=== PATIENT | male | born 1945 | race Caucasian/White ===

== ENCOUNTER 2022-11-12 06:44 | Day surgery (SDC) | payer MEDICARE ==
[2022-11-11 11:23] LABS: HEMOGLOBIN 17.7 g/dl (13.5-18.0); MEAN CELL VOLUME 87 fl (80.0-100.0); MEAN CORPUSCULAR HEMOGLOBIN 29 pg (27-31); MEAN CORPUSCULAR HGB CONC 34 g/dl (33.0-37.0); MEAN PLATELET VOLUME 9.1 fl (7.4-10.4); PLATELET COUNT 161 K/mm3 (130-400); RED BLOOD COUNT 6.06 M/mm3 (4.20-5.60); REDCELL DISTRIBUTION WIDTH-CV 14.5 % (11.5-14.5)
[2022-11-11 11:27] LABS: HEMATOCRIT 52.5 % (42.0-52.0)
[2022-11-11 11:40] LABS: CALCIUM 9.9 mg/dL (8.4-10.2); CREATININE, serum 1.16 mg/dL (0.72-1.25); POTASSIUM 4.3 mmol/L (3.5-4.5)
[2022-11-12] VITALS (23 sets, daily range): BP systolic 106–140; BP diastolic 32–94; PULSE 55–98; TEMP 97.9–98.9
[~2022-11-12] VITALS: Ht 185.4 cm; Wt 101.8 kg
[~2022-11-12 06:44] MED LIST: ASPIRIN 81M81 MG/TA2 PO; COMPLETE MULTI1 TAB PO; CRANBERRY500 M3 PO; FLOMAX 0.40.4 MG/CAP PO; FLOVENT DI50 MCG/Act NAS; NATURAL ODORLE400 MG PO; PERCOCET 325 MG1 TA2 PO; PRINIVIL20 MG PO; VISION FORMULA1 EAC1 PO
--- NOTE | 2022-11-12 08:25 | NUR ---
1 MG VERSED AND 50 MCG FENTANYL GIVEN AT 0818. SATS DROPPED TO 88% AND O2 WAS PLACED @ 2L/NC. PT RECOVERED TO 95%
--- NOTE | 2022-11-12 08:36 | NUR ---
DR CASTILLO REQUESTED ANOTHER 25 MCG FENTANYL TO BE GIVEN.
--- NOTE | 2022-11-12 09:15 | NUR ---
PT WAS TAKEN TO [facility] ON CART. PT IS ON HIS BACK AND ALL WIRES TAPED SECURLY TO THE BACK. VSS. REPORT TO [facility] NURSE. PT COMFORTABLE AT PRESENT
--- NOTE | 2022-11-12 11:26 | NUR ---
0916: PATIENT BACK FROM RADIOLOGY AT THIS TIME. EMPTIED 125ML OF BLOOD TINGED URINE FROM URINAL. PATIENT STATED HIS PAIN IS CONTROLED AT THIS TIME. SPO2 ON RA IS 95%. PATIENT RESTING IN COT ON STOMACH. AND DAUGHTER AT BEDSIDE. CALL LIGHT IN REACH. 1000: PATIENT RESTING ON COT LAYING ON RIGHT SIDE. EMPTIED 75ML OF BLOOD TINGED URING. PATIENT STATING PAIN IS TOLERABLE AT THIS TIME. SPO2 94% ON ROOM AIR. AND DAUGHTER AT BEDSIDE. CALL LIGHT IN REACH. WILL CONTINE TO MONITOR.
[2022-11-12] MEDS ORDERED: PYRIDIUM 100MG100 MG PO (14:35)
[2022-11-12] MEDS ORDERED: NORCO 325 MG-51 TAB PO (14:35)
--- NOTE | 2022-11-12 17:46 | NUR ---
Patient resting in bed. Family at bedside. He has done well post op. He tolerated meals. Vss. Brantley to DD with blood tinged output. Left flank with gauze and tegaderm intact. Levsin & tylenol for bladder pressure & pain. Denies other needs at this time
--- NOTE | 2022-11-12 21:15 | NUR ---
Patient assessed at this time, head to toe assessment done, see shift assessment, rates his bladder at 7/10, scheduled tylenol given and will give levsin once its due, dressing to left flank CDI, SCD's on, denies further needs, call light and personal items within reach, will continue to monitor.
[2022-11-13 03:21] VITALS: BP 129/76; PULSE 56; TEMP 98.9
[2022-11-13 05:12] LABS: HEMATOCRIT 45.2 % (42.0-52.0); MEAN CELL VOLUME 86 fl (80.0-100.0); MEAN CORPUSCULAR HEMOGLOBIN 30 pg (27-31); MEAN CORPUSCULAR HGB CONC 35 g/dl (33.0-37.0); MEAN PLATELET VOLUME 9.2 fl (7.4-10.4); PLATELET COUNT 186 K/mm3 (130-400); RED BLOOD COUNT 5.26 M/mm3 (4.20-5.60); REDCELL DISTRIBUTION WIDTH-CV 14.3 % (11.5-14.5)
[2022-11-13 05:15] LABS: HEMOGLOBIN 15.6 g/dl (13.5-18.0)
--- NOTE | 2022-11-13 06:15 | NUR ---
Patient still has blood tinged urine, had an uneventful night, denies further need at this time, will report off to dayshift nurse.
[2022-11-13 08:07] VITALS: BP 125/71; PULSE 54; TEMP 98.2
--- NOTE | 2022-11-13 11:17 | NUR ---
stopped and visited with patient. Nothing else needed at this time.
[2022-11-13 11:42] VITALS: BP 126/70; PULSE 57; TEMP 97.8
--- NOTE | 2022-11-13 13:40 | NUR ---
Patient ready for discharge. Dr. Ramirez rounded and orders obtained. Patient has done well today. Patient voiding without difficulty post pace removal. Urine has cleared nicely. Patient showered this am. Left flank gauze & tegaderm removed. Incisions edges well approximated. He has done well with meals without nausea. All discharge education given. We reviewed medication list and new prescriptions. Activty restrictions and diet reviewed. Signs & symptoms to call doctor discussed, patient aware he will have another procedure in a few weeks. Patient wheeled out with all belongings, his family taking him home and deny questions and concerns.
== END 2022-11-13 15:23 | disposition home health service (06) ==
LOC: SDCO 06:44 → COL.RAD 07:00 → SDCO 07:00 → EDSTATUS 07:00 → SURG 15:39 → SDCO 11-13 15:23
PROVIDERS: Urology
DX: N20.0 Calculus of kidney (principal); R31.0 Gross hematuria; G47.33 Obstructive sleep apnea (adult) (pediatric); Z89.022 Acquired absence of left finger(s); Z87.891 Personal history of nicotine dependence
CPT/HCPCS: OP; A4314; C1726; C1769; C1894; C2617; J0330; J0690; J1100; J1885; J2250; J2370; J2405; J2704; J3010; J7040; J7120; Q9967

== ENCOUNTER 2022-12-07 13:08 | Day surgery (SDC) | payer MEDICARE ==
[2022-12-07] VITALS (7 sets, daily range): BP systolic 105–115; BP diastolic 57–75; PULSE 64–74; TEMP 97.6–97.8
[~2022-12-07] VITALS: Ht 198.1 cm; Wt 100.9 kg
[~2022-12-07 13:08] MED LIST changes: +NORCO 325 MG-51 TAB PO; +PYRIDIUM 100MG100 MG PO
[2022-12-07] MEDS ORDERED: NORCO 325 MG-51 TAB PO (16:35)
[2022-12-07] MEDS ORDERED: PYRIDIUM 100MG100 MG PO (16:35)
--- NOTE | 2022-12-07 18:40 | NUR ---
1705 RETURNS TO ROOM 2 PER CART. AWAKE, ALERT. RESP UNLABORED. HOB ELEVATED 45 DEGREES. DENIES PAIN. REPORTS SLIGHT URINARY URGENCY. CALL LIGHT AT SIDE. IN ROOM 1720 VOIDS 200 ML LIGHT PINK URINE PER URINAL 1735 TOLERATES PO WATER AND PUDDING WITHOUT NAUSEA 1750 AWAKE, ALERT. DENIES NILDA 1810 DISCHARGE INSTRUCTIONS REVIEWED. PATIENT AND VERBALIZE UNDERSTANDING. COPY PROVIDED IN DISCHARGE FOLDER 1822 SITS ON EDGE OF CART. DRESSES SELF. AT SIDE
== END 2022-12-07 18:40 | disposition home or self-care (01) ==
LOC: SDCO 13:08
DX: N20.2 Calculus of kidney with calculus of ureter (principal); G47.33 Obstructive sleep apnea (adult) (pediatric); Z87.891 Personal history of nicotine dependence; Z99.81 Dependence on supplemental oxygen
CPT/HCPCS: C1769; C2617; J0690; J1100; J2405; J2704; J3010; J7120